=== PATIENT | male | born 1985 | race Hispanic/Latino ===

== ENCOUNTER 2018-06-21 12:33 | Emergency (ER) | payer BC ==
[2018-06-21 12:38] VITALS: BP 155/74; PULSE 76; RESP 18; TEMP 98.3; O2SAT 96
[2018-06-21] MEDS ORDERED: Tdap Vaccine 0.5 ml Vial (10-64 yrs) IM ONE ×2 (12:46→12:51)
--- NOTE | 2018-06-21 13:31 | RAD ---
PROCEDURE: Right Wrist Radiographs. Right Hand Radiographs. HISTORY: trauma COMPARISON: None. FINDINGS: BONES: Deformity of the 5th proximal phalanx. No acute fracture. JOINTS: Unremarkable. SOFT TISSUES: Soft tissue swelling adjacent to the 5th metacarpal. OTHER FINDINGS: None. IMPRESSION: No demonstrated acute fracture or dislocation. Chronic deformity of the 5th proximal phalanx.
--- NOTE | 2018-06-21 13:39 | ED PDOC ---
Upper Extremity Pain/Injury Time Seen by Provider: 06/21/18 12:42 Chief Complaint (Nursing): Upper Extremity Problem/Injury Chief Complaint (Provider): Upper Extremity Problem/Injury History Per: Patient History/Exam Limitations: no limitations Onset/Duration Of Symptoms: Hrs (14x hours) Current Symptoms Are (Timing): Still Present Severity: Moderate Additional Complaint(s): 33 year old male with no past medical history presents to the ED for an evaluation of a right hand and wrist injury that occurred last night. Patient states that last night he punched a mirror, sustaining swelling and pain to the right hand and wrist. Patient denies having numbness, tingling, and a foreign body sensation. Tetanus is not up to date. PMD: None provided. Past Medical History Reviewed: Historical Data, Nursing Documentation, Vital Signs Vital Signs: Last Vital Signs Temp 98.3 F 06/21/18 12:35 Pulse 76 06/21/18 12:35 Resp 18 06/21/18 12:35 BP 155/74 H 06/21/18 12:35 Pulse Ox 96 06/21/18 12:35 CORNELL Report Viewed: Yes - Medical History PMH: No Chronic Diseases - Family History Family History: States: No Known Family Hx - Social History Alcohol: None Drugs: Denies - Immunization History Hx Tetanus Toxoid Vaccination: No - Allergies Allergies/Adverse Reactions: Allergies Allergy/AdvReac Type Severity Reaction Status Date / Time No Known Allergies Allergy Verified 06/21/18 12:35 Review of Systems ROS Statement: Except As Marked, All Systems Reviewed And Found Negative Musculoskeletal: Positive for: Hand Pain (right hand and wrist pain and swelling) Neurological: Negative for: Numbness ((-) tingling) Physical Exam - Reviewed Nursing Documentation Reviewed: Yes Vital Signs Reviewed: Yes - Physical Exam Appears: Positive for: Well, Non-toxic, No Acute Distress Head Exam: Positive for: ATRAUMATIC, NORMOCEPHALIC Pulses-Radial (L): 2+ Pulses-Radial (R): 2+ Extremity: Positive for: Tenderness (mild tenderness and swelling on dorsal surface of right hand and wrist. Superficial abrasions noted to fingers. (-) laceration, (-) deformity of fingers, (-) tenderness of fingers.) Neurologic/Psych: Positive for: Alert, Oriented (3x) - ECG O2 Sat by Pulse Oximetry: 96 (RA) Pulse Ox Interpretation: Normal - Radiology X-Ray: Interpreted by Me, Viewed By Me X-Ray Interpretation: No Acute Disease (no fractures) - Progress ED Course And Treament: 13:10 XRay of right hand and wrist negative for fractures. Due to high suspicion of an fracture, CT of right hand and wrist ordered and will be done. Patient agrees to plan of care. 14:04 CT right hand and wrist read and reviewed by radiologist FINDINGS: BONES: Comminuted fractures of the dorsal capitate and hamate. Avulsion fracture at the volar base of the 4th metacarpal. SOFT TISSUES: Dorsal and ulnar wrist soft tissue swelling. IMPRESSION: Comminuted fractures of the dorsal capitate and hamate. Avulsion fracture of the volar base of the 4th metacarpal. Discussed case with who reviewed XRay images, recommended patient have a splint placed. Patient can follow up in 's office on 06/22/2018 at 9 AM. Medical Decision Making Medical Decision Makin:42 Initial impression: 33 year old male with a right hand and wrist injury. Initial plan: * XRay hand right 3views * XRay wrist right 3 views * adacel 10-64 yrs 0.5 ml IM * motrin tab 800 mg PO * reevaluation Advised to f/u with Dr. Sweet tomorrow at 0900 for further evaluation. Hand immobilized in orthoglass volar/dorsal splint applied by JAQUAN. Post exam was normal. Cap refill < 2 seconds. Distal sensation intact and equal b/l. --- Scribe Attestation: Documented byRosa Andersen, acting as a scribe for Javan Jack Provider Scribe Attestation: All medical record entries made by the Scribe were at my direction and personally dictated by me. I have reviewed the chart and agree that the record accurately reflects my personal performance of the history, physical exam, medical decision making, and the department course for this patient. I have also personally directed, reviewed, and agree with the discharge instructions and disposition. Disposition - Clinical Impression Clinical Impression: Hand fracture - Patient ED Disposition Is Patient to be Admitted: No - Disposition Referrals: Preston Sweet MD [Medical Doctor] - Disposition: Routine/Home Disposition Time: 15:15 Condition: STABLE Additional Instructions: FOLLOW UP WITH DR. SWEET TOMORROW WITHOUT FAIL RETURN TO ED IMMEDIATELY IF SYMPTOMS WORSEN VAL PINEDA, thank you for letting us take care of you today. Your provider was Lucio Stephenson MD and you were treated for RT HAND INJURY. The emergency medical care you received today was directed at your acute symptoms. If you were prescribed any medication, please fill it and take as directed. It may take several days for your symptoms to resolve. Return to the Emergency Department if your symptoms worsen, do not improve, or if you have any other problems. Please contact your doctor or call one of the physicians/clinics you have been referred to that are listed on the Patient Visit Information form that is included in your discharge packet. Bring any paperwork you were given at discharge with you along with any medications you are taking to your follow up visit. Our treatment cannot replace ongoing medical care by a primary care provider outside of the emergency department. Thank you for allowing the [facility] team to be part of your care today. If you had an X-Ray or CT scan: A Radiologist will review the ED reading if any change in treatment is needed we will contact you. If you had a blood, urine, or wound culture: It will take several days for the results, if any change in treatment is needed we will contact you. If you had an STI test: It will take 48 hours for the results. Please call after 1 week if you have not heard back. Instructions: Hand Fracture (DC) Forms: [employer] ([place]), [facility] ED School/Work Excuse Print Language: OMANI
--- NOTE | 2018-06-21 14:29 | CT ---
Date of service: 06/21/2018 PROCEDURE: CT of the right hand and wrist. HISTORY: s/p trauma; ATTN: HAND AND WRIST COMPARISON: Correlations made to hand and wrist radiographs performed earlier the same day. TECHNIQUE: Contiguous axial images of the right hand and wrist were obtained. Coronal and sagittal reformats were generated. Radiation dose: Total exam DLP = 218.95 mGy-cm. This CT exam was performed using one or more of the following dose reduction techniques: Automated exposure control, adjustment of the mA and/or kV according to patient size, and/or use of iterative reconstruction technique. FINDINGS: BONES: Comminuted fractures of the dorsal capitate and hamate. Avulsion fracture at the volar base of the 4th metacarpal. SOFT TISSUES: Dorsal and ulnar wrist soft tissue swelling. IMPRESSION: Comminuted fractures of the dorsal capitate and hamate. Avulsion fracture of the volar base of the 4th metacarpal.
== END 2018-06-21 16:01 | disposition home or self-care (01) ==
LOC: H.ER 12:33
DX: S62.314A Displaced fracture of base of fourth metacarpal bone, right hand, initial encounter for closed fracture (principal); W22.09XA Striking against other stationary object, initial encounter; Z23 Encounter for immunization